=== PATIENT | female | born 1965 | race American Indian/Alaskan Native ===

== ENCOUNTER 2016-11-18 15:15 | Outpatient (CLI) | payer OTHER | END 2016-11-18 15:16 | disposition home or self-care (01) | LOC: LABHHL 15:15 | PROVIDERS: ATTEND Internal Medicine Gastroenterology | DX: D12.5 Benign neoplasm of sigmoid colon (principal) | CPT/HCPCS: 88305 ==

== ENCOUNTER 2017-07-28 08:16 | Outpatient (CLI) | payer OTHER ==
--- NOTE | 2017-07-29 09:48 | Mammography Report ---
Bilateral mammogram: Compared to 07/26/16. CAD study utilized. Findings: Predominance adipose tissue bilaterally. No mass or microcalcification. Normal axilla. Impression: Benign findings. Annual followup recommended. BI-RADS CATEGORY: 2 = Benign ACR BI-RADS MAMMOGRAPHIC CODES: 0 = Needs additional imaging evaluation; 1 = Negative; 2 = Benign; 3 = Probably benign; 4 = Suspicious; 5 = Malignant; 6 = Known biopsy-proven malignancy COMMENT: 1. Dense breast tissue, i.e., adenosis, fibrocystic changes, etc., may obscure an underlying neoplasm. 2. Approximately 10% of cancers are not detected with mammography. 3. A negative mammography report should not delay biopsy if a clinically suspicious mass is present. COMMENT: Patient follow-up letters are generated in [email or web address].
== END 2017-07-28 08:17 | disposition home or self-care (01) ==
LOC: MAMMO 08:16
PROVIDERS: ATTEND Family Medicine
DX: Z12.31 Encounter for screening mammogram for malignant neoplasm of breast (principal); I10 Essential (primary) hypertension
CPT/HCPCS: 77067; G0202

== ENCOUNTER 2019-08-05 08:52 | Outpatient (CLI) | payer OTHER ==
--- NOTE | 2019-08-05 13:05 | Mammography Report ---
DIGITAL SCREENING MAMMOGRAM WITH CAD, 08/05/2019 INDICATION: Routine screening mammography. TECHNIQUE: Digital bilateral 2D mammography was obtained in the craniocaudal and mediolateral obliq ue projections. This examination was interpreted with the benefit of Computer-Aided Detection analysi s. COMPARISON: 07/30/2018 FINDINGS: Breast Density: The breasts are almost entirely fatty. There is no evidence of dominant mass, suspicious calcifications or architectural distortion in eithe r breast. IMPRESSION: No mammographic evidence of malignancy. Follow up recommendation: Routine yearly BI-RADS Category 1: Negative. A "normal" or negative report should not discourage follow up or biopsy of a clinically significant f inding. A written summary of these findings will be mailed to the patient. The patient will be entered into a mammography reporting system which will generate a reminder letter for the patient's next appointmen t at the appropriate interval. The [employer] recommends yearly mammograms starting at age 40 and continuing as l paige as a woman is in good health. Breast MRI is recommended for women with an approximate 20-25% or greater lifetime risk of breast cancer, including women with a strong family history of breast or ova coleman cancer or who have been treated for Hodgkin's disease. Signer Name: Adarsh Cornelius MD Signed: 08/05/2019 1:00 PM Workstation Name: [id number]
== END 2019-08-05 08:53 | disposition home or self-care (01) ==
LOC: MAMMO 08:52
PROVIDERS: ATTEND Family Medicine
DX: Z12.31 Encounter for screening mammogram for malignant neoplasm of breast (principal)
CPT/HCPCS: 77067

== ENCOUNTER 2020-08-06 07:52 | Outpatient (CLI) | payer OTHER ==
--- NOTE | 2020-08-06 09:25 | Mammography Report ---
DIGITAL SCREENING MAMMOGRAM WITH CAD, 08/06/2020 CLINICAL INFORMATION / INDICATION: Routine screening mammography. SCREENING MAMMOGRAM TECHNIQUE: Digital bilateral 2D mammography was obtained in the craniocaudal and mediolateral obliqu e projections. This examination was interpreted with the benefit of Computer-Aided Detection analysis . COMPARISON: 08/05/2019 and 07/30/2018 FINDINGS: Breast Density: The breasts are almost entirely fatty. No dominant mass, suspicious calcifications, or architectural distortion in either breast. IMPRESSION: No mammographic evidence of malignancy. Follow up recommendation: Routine yearly BI-RADS Category 1: Negative. A "normal" or negative report should not discourage follow up or biopsy of a clinically significant f inding. A written summary of these findings will be mailed to the patient. The patient will be entered into a mammography reporting system which will generate a reminder letter for the patient's next appointmen t at the appropriate interval. The [employer] recommends yearly mammograms starting at age 40 and continuing as l paige as a woman is in good health. Breast MRI is recommended for women with an approximate 20-25% or greater lifetime risk of breast cancer, including women with a strong family history of breast or ova coleman cancer or who have been treated for Hodgkin's disease. Signer Name: Abraham Tolentino MD Signed: 08/06/2020 9:21 AM Workstation Name: [id number]
== END 2020-08-06 07:53 | disposition home or self-care (01) ==
LOC: MAMMO 07:52
PROVIDERS: ATTEND Family Medicine
DX: Z12.31 Encounter for screening mammogram for malignant neoplasm of breast (principal)
CPT/HCPCS: 77067

== ENCOUNTER 2020-09-27 09:53 | Emergency (ER) | payer OTHER ==
[2020-09-27 10:06] VITALS: BP 170/101
--- NOTE | 2020-09-27 10:18 | Emergency Department Report ---
ED General Adult HPI - General Chief complaint: High BP Stated complaint: BP HIGH Time Seen by Provider: 09/27/20 10:09 Source: patient Mode of arrival: Ambulatory Limitations: No Limitations - History of Present Illness Initial comments: 54-year-old -H[place] female with a history of hypertension presents to the emergency room stating that her blood pressure is elevated. Patient reports that she is currently on losartan 25 mg daily. Patient states that she has started this 2 weeks ago. She does report she takes as needed Lasix. Patient s tates that she hernandez recently seen a wire winder and was placed on a medication and a shot. Patient is unaware what the pills that she was taken. Patient's feels that the allergy medication has elevated her blood pressure. Patient states she did discontinue but still having elevated blood pressure. It was noted that patient's blood pressure today was 170/101. Patient does admit to occasional headaches that seems to not respond to Tylenol or ibuprofen. Patient denies any chest pain no shortness of breathing. Onset/Timin -: week(s) Location: head Consistency: constant Worsens with: none Associated Symptoms: headaches. denies: chest pain, fever/chills, nausea/vomiting - Related Data Home Medications Medication Instructions Recorded Confirmed Last Taken Hydrochlorothiazide 25 mg PO DAILY 10/11/15 10/11/15 10/10/15 lisinopriL [Zestril TAB] 20 mg PO QDAY 10/11/15 10/11/15 10/11/15 07:01 Previous Rx's Medication Instructions Recorded Last Taken Type Acetaminophen [Acetaminophen TAB] 650 mg PO Q4H PRN #60 tablet 10/13/15 Unknown Rx amLODIPine 5 mg PO DAILY #30 tab 09/27/20 Unknown Rx Allergies Allergy/AdvReac Type Severity Reaction Status Date / Time amoxicillin [From Augmentin] Allergy Hives Verified 09/27/20 10:03 clavulanic acid Allergy Hives Verified 09/27/20 10:03 [From Augmentin] ED Review of Systems ROS: Stated complaint: BP HIGH Other details as noted in HPI Comment: All other systems reviewed and negative ED Past Medical Hx - Past Medical History Hx Hypertension: Yes Hx Congestive Heart Failure: No Hx Diabetes: No Hx Asthma: No Hx COPD: No Hx HIV: No Additional medical history: vaginal delivery x 1 1989 - Surgical History Hx Cholecystectomy: Yes Hx Breast Surgery: Yes (Breast reduction) Additional Surgical History: Hysterectomy. Cholecystectomy - Social History Smoking Status: Never Smoker Substance Use Type: None - Medications Home Medications: Home Medications Medication Instructions Recorded Confirmed Last Taken Type Hydrochlorothiazide 25 mg PO DAILY 10/11/15 10/11/15 10/10/15 History lisinopriL [Zestril TAB] 20 mg PO QDAY 10/11/15 10/11/15 10/11/15 07:01 History Acetaminophen [Acetaminophen TAB] 650 mg PO Q4H PRN #60 tablet 10/13/15 Unknown Rx amLODIPine 5 mg PO DAILY #30 tab 09/27/20 Unknown Rx ED Physical Exam - General Limitations: No Limitations General appearance: alert, in no apparent distress - Head Head exam: Present: atraumatic, normocephalic - Eye Eye exam: Present: normal appearance - ENT ENT exam: Present: mucous membranes moist - Neck Neck exam: Present: normal inspection - Respiratory Respiratory exam: Present: normal lung sounds bilaterally. Absent: respiratory distress - Cardiovascular Cardiovascular Exam: Present: regular rate, normal rhythm. Absent: systolic murmur, diastolic murmur, rubs, gallop - GI/Abdominal GI/Abdominal exam: Present: soft, normal bowel sounds - Extremities Exam Extremities exam: Present: normal inspection, full ROM. Absent: pedal edema - Back Exam Back exam: Present: normal inspection, full ROM - Neurological Exam Neurological exam: Present: alert, oriented X3, CN II-XII intact, normal gait - Psychiatric Psychiatric exam: Present: normal affect, normal mood - Skin Skin exam: Present: warm, dry, intact, normal color. Absent: rash ED Course Vital Signs 09/27/20 10:03 Temperature 98 F Pulse Rate 99 H Respiratory 20 Rate Blood Pressure 170/101 O2 Sat by Pulse 100 Oximetry ED Medical Decision Making - Medical Decision Making 54-year-old -[place] female with a history of hypertension presents to the emergency room stating that her blood pressure is elevated. Patient reports that she is currently on losartan 25 mg daily. Patient states that she has started this 2 weeks ago. She does report she takes as needed Lasix. Patient states that she hernandez recently seen a wire winder and was placed on a medication and a shot. Patient is unaware what the pills that she was taken. Patient's feels that the allergy medication has elevated her blood pressure. Patient states she did discontinue but still having elevated blood pressure. It was noted that patient's blood pressure today was 170/101. Patient does admit to occasional headaches that seems to not respond to Tylenol or ibuprofen. Patient denies any chest pain no shortness of breathing. Patient will be placed on amlodipine 5 mg daily. I discussed with patient to continue with the losartan 25 mg daily. I encourage patient to keep a blood pressure log and to follow-up with her primary care provider next week. I instructed patient if her blood pressure gets worse she has a worsening headache chest pain shortness of breathing to return to an emergency room immediately. Patient states that she is able to comply with this and will follow up with her primary care provider. Critical care attestation.: If time is entered above; I have spent that time in minutes in the direct care of this critically ill patient, excluding procedure time. ED Disposition Clinical Impression: Uncontrolled hypertension Disposition: DC-01 TO HOME OR SELFCARE Is pt being admited?: No Does the pt Need Aspirin: No Condition: Stable Instructions: Hypertension (ED), Hypertension, Adult, [id number], Managing Your Hypertension Additional Instructions: Continue with your losartan 25 mg daily start your amlodipine today if possible. Keep a blood pressure log and follow-up with your primary care provider next week. I encourage you to increase your water intake avoid your sodium intake continue with exercising daily. Return back to the emergency room if any worsening symptoms asked excruciating headache chest pain shortness of breathing. Prescriptions: amLODIPine 5 mg PO DAILY #30 tab
== END 2020-09-27 10:48 | disposition home or self-care (01) ==
LOC: ED 09:53
DX: I10 Essential (primary) hypertension (principal); Z90.49 Acquired absence of other specified parts of digestive tract; Z98.890 Other specified postprocedural states; Z79.899 Other long term (current) drug therapy; Z88.8 Allergy status to other drugs, medicaments and biological substances
CPT/HCPCS: 99282

== ENCOUNTER 2021-06-11 11:32 | Outpatient (CLI) | payer OTHER ==
--- NOTE | 2021-06-11 12:30 | Mammography Report ---
DIGITAL DIAGNOSTIC MAMMOGRAM WITH CAD, 06/11/2021 INDICATION: The patient reports a history of generalized bilateral breast pain which she says has now resolved. TECHNIQUE: Digital bilateral mammographic imaging was performed. This examination was interpreted with the benefit of Computer-aided Detection analysis. COMPARISON: 08/06/2020, 08/05/2019, 07/30/2018 FINDINGS: Breast Density: The breasts are almost entirely fatty. There is no evidence of dominant mass, suspicious calcifications or architectural distortion in eithe r breast. IMPRESSION: Follow up recommendation: Routine yearly BI-RADS Category 1: Negative. Clinical correlation is recommended for the patient's previous breast pain. A "normal" or negative report should not discourage follow up or biopsy of a clinically significant f inding. A written summary of these findings will be mailed to the patient. The patient will be entered into a mammography reporting system which will generate a reminder letter for the patient's next appointmen t at the appropriate interval. According to the [employer], yearly mammograms are recommended starting at age 40 and continuing as long as a woman is in good health. Breast MRI is recommended for women with an leslie roximately 20-25% or greater lifetime risk of breast cancer, including women with a strong family his tory of breast or ovarian cancer and women who have been treated for Hodgkin's disease. Signer Name: Fernanda Mix MD Signed: 06/11/2021 12:26 PM Workstation Name: [id number]
== END 2021-06-11 11:33 | disposition home or self-care (01) ==
LOC: MAMMO 11:32
PROVIDERS: ATTEND Family Medicine
DX: R92.8 Other abnormal and inconclusive findings on diagnostic imaging of breast (principal)
CPT/HCPCS: 77066

== ENCOUNTER 2021-10-12 11:43 | Emergency (ER) | payer OTHER ==
[2021-10-12 13:09] VITALS: BP 145/94
--- NOTE | 2021-10-12 14:21 | Emergency Department Report ---
ED General Adult HPI - General Chief complaint: Extremity Problem,Nontraumatic Stated complaint: ARM/SHOULDER/FACE PAIN Time Seen by Provider: 10/12/21 13:54 Source: patient Mode of arrival: Ambulatory Limitations: No Limitations - History of Present Illness Initial comments: Patient presents with a 7-day history of ongoing and worsening pain involving the left arm and neck. She states that she is having pain that radiates from the left neck all the way down into the arm. It hurts into the shoulder area as well. She describes a numbness and tingling associated with this. Pain is worse when she turns her neck to the right and left. It is not worse necessarily with flexion and extension. This is not worse with exertion. It is not specifically positional. Patient has noticed the numbness and tingling involving all the digits on the left hand. Right hand and arm are unaffected. She has no shortness of breath. There is no chest pain proper. Symptoms are not worse with exertion. She actually states that when she walks around she seems to take her mind off of this neck and arm pain and feel better. She was sent by her PCP for evaluation of this. Severity scale (0 -10): 6 - Related Data Home Medications Medication Instructions Recorded Confirmed Last Taken Hydrochlorothiazide 25 mg PO DAILY 10/11/15 10/12/21 10/10/15 lisinopriL [Zestril TAB] 20 mg PO QDAY 10/11/15 10/12/21 10/11/15 07:01 Previous Rx's Medication Instructions Recorded Last Taken Type Acetaminophen [Acetaminophen TAB] 650 mg PO Q4H PRN #60 tablet 10/13/15 Unknown Rx amLODIPine 5 mg PO DAILY #30 tab 09/27/20 Unknown Rx Ibuprofen [Motrin] 600 mg PO Q8H PRN #20 tablet 10/12/21 Unknown Rx Metaxalone [Skelaxin] 800 mg PO TID #9 tablet 10/12/21 Unknown Rx Allergies Allergy/AdvReac Type Severity Reaction Status Date / Time amoxicillin [From Augmentin] Allergy Hives Verified 09/27/20 10:03 clavulanic acid Allergy Hives Verified 10/12/21 14:14 [From Augmentin] ED Review of Systems ROS: Stated complaint: ARM/SHOULDER/FACE PAIN Other details as noted in HPI Comment: All other systems reviewed and negative Constitutional: denies: fever Eyes: denies: vision change ENT: denies: throat pain Respiratory: denies: cough Cardiovascular: denies: chest pain Endocrine: denies: unexplained weight loss Gastrointestinal: denies: abdominal pain Genitourinary: denies: dysuria Musculoskeletal: as per HPI. denies: back pain Skin: denies: rash Neurological: as per HPI. denies: headache Hematological/Lymphatic: denies: easy bruising ED Past Medical Hx - Past Medical History Hx Hypertension: Yes Hx Congestive Heart Failure: No Hx Diabetes: No Hx Asthma: No Hx COPD: No Hx HIV: No Additional medical history: vaginal delivery x 1 1989 - Surgical History Hx Cholecystectomy: Yes Hx Breast Surgery: Yes (Breast reduction) Additional Surgical History: Hysterectomy. Cholecystectomy - Family History Family history: hypertension - Social History Smoking Status: Never Smoker Substance Use Type: None - Medications Home Medications: Home Medications Medication Instructions Recorded Confirmed Last Taken Type Hydrochlorothiazide 25 mg PO DAILY 10/11/15 10/12/21 10/10/15 History lisinopriL [Zestril TAB] 20 mg PO QDAY 10/11/15 10/12/21 10/11/15 07:01 History Acetaminophen [Acetaminophen TAB] 650 mg PO Q4H PRN #60 tablet 10/13/15 10/12/21 Unknown Rx amLODIPine 5 mg PO DAILY #30 tab 09/27/20 10/12/21 Unknown Rx Ibuprofen [Motrin] 600 mg PO Q8H PRN #20 tablet 10/12/21 Unknown Rx Metaxalone [Skelaxin] 800 mg PO TID #9 tablet 10/12/21 Unknown Rx ED Physical Exam - General Limitations: No Limitations, Other (Pulse ox noted and normal) General appearance: alert, in no apparent distress - Head Head exam: Present: atraumatic, normocephalic - Eye Eye exam: Present: normal appearance, PERRL, EOMI. Absent: scleral icterus - ENT ENT exam: Present: normal orophraynx, normal external ear exam - Neck Neck exam: Present: normal inspection, tenderness (Left paraspinous musculature and sternocleidomastoid which recreates her pain) - Respiratory Respiratory exam: Present: normal lung sounds bilaterally. Absent: respiratory distress - Cardiovascular Cardiovascular Exam: Present: regular rate, normal rhythm - GI/Abdominal GI/Abdominal exam: Present: soft. Absent: tenderness - Extremities Exam Extremities exam: Present: normal capillary refill. Absent: pedal edema - Back Exam Back exam: Absent: CVA tenderness (R), CVA tenderness (L) - Neurological Exam Neurological exam: Present: alert, oriented X3, CN II-XII intact, normal gait, reflexes normal. Absent: motor sensory deficit - Psychiatric Psychiatric exam: Present: normal affect, normal mood - Skin Skin exam: Present: warm, dry, intact ED Course Vital Signs 10/12/21 10/12/21 13:05 14:13 Temperature 98.5 F Pulse Rate 72 Respiratory 18 Rate Blood Pressure 145/94 [Right] O2 Sat by Pulse 99 100 Oximetry - Reevaluation(s) Reevaluation #1: 10/13/21 18:54 Patient was discharged. EKG had been noted. ED Medical Decision Making - EKG Data -: EKG Interpreted by Me - EKG Data 10/13/21 18:54 EKG showed a normal sinus rhythm with normal intervals. There is no ST elevation to suggest STEMI. There is no ST depression suggestive of ischemia. - Medical Decision Making Patient presents with left cervical radiculopathy. Her primary care physician had sent her here. There is no indication for emergent MRI. There is no trauma and no midline tenderness suggestive of acute fracture. I do not believe this represents an acute disc herniation. Patient does not have risk factors for ACS other than hypertension. She states her symptoms are actually better with exertion. I do not believe this represents ACS. Critical Care Time: No Critical care attestation.: If time is entered above; I have spent that time in minutes in the direct care of this critically ill patient, excluding procedure time. ED Disposition Clinical Impression: Cervical radiculopathy Disposition: 01 HOME / SELF CARE / HOMELESS Is pt being admited?: No Condition: Stable Instructions: Radicular Pain Additional Instructions: Continue to do heat at home. Return for problems. Follow-up with your family doctor or the referral doctor for recheck and further evaluation. Prescriptions: Ibuprofen [Motrin] 600 mg PO Q8H PRN #20 tablet PRN Reason: Pain Metaxalone [Skelaxin] 800 mg PO TID #9 tablet Referrals: PRIMARY CARE, [Referring] - 3-5 Days
--- NOTE | 2021-10-13 09:23 | Electrocardiograph Report ---
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
== END 2021-10-12 15:11 | disposition home or self-care (01) ==
LOC: ED 11:43
DX: M54.12 Radiculopathy, cervical region (principal); I10 Essential (primary) hypertension; Z88.0 Allergy status to penicillin
CPT/HCPCS: 93005; 99282